=== PATIENT | male | born 2000 | race Caucasian/White ===

== ENCOUNTER 2024-04-03 10:32 | Outpatient (AMB) | payer BC, SELFPAY ==
--- NOTE | 2024-04-03 10:36 | A.OFFPC_ITS ---
Vital Signs 04/03/24 10:43 Height 6 ft 2 in Weight 156 lb 4 oz BMI 20.1 BP 130/68 Blood Pressure Location Lt brachial Position Sitting Pulse 78 Pulse Source Pulse Oximeter Pulse Oximetry (%) 99 Oxygen Delivery Method Room Air Intake Visit Reasons: New pt/requesting PE soon Intake Note: Patient is a new patient here to establish care for ADHD. Transferring care from [facility] in [place]. Medical records have not been requested and have not received. Supervisor [employer] Drilling Required: No Dietary Internship: Not Required per policy Accompanied by: Self / Same As Patient Allergies No Known Allergies Allergy (Verified 04/03/24 11:07) Medication List - Last Reconciled 04/03/24 by Stephie Sharpe PA-C No Known Home Meds Tobacco use date assessed: 04/03/24 Dental Screening Dental Screen Date: 04/03/24 Did you have a dental visit in the last 12 months?: Yes Did you have a dental problem in the last 6 months where you did not have access to dental care?: No Was dental information given to patient?: Patient has dentist [facility] Surgical History No pertinent past surgical history Social History Housing: House Alcohol intake: current Alcohol intake frequency: holidays/special occasions only Patient Tobacco Use Status: Never used Tobacco e-Cigarette/Vaping Use: Never Used Second Hand Smoke Exposure: No service: No Current occupational status: student Cognitive needs: No Hearing needs: No Vision needs: No Questionnaire PHQ-9 Over the last 2 weeks, how often have you been bothered by any of the following problems? 1. Little interest or pleasure in doing things: not at all 2. Feeling down, depressed, or hopeless: not at all 3. Trouble falling or staying asleep, or sleeping too much: not at all 4. Feeling tired or having little energy: not at all 5. Poor appetite or overeating: not at all 6. Feeling bad about yourself - or that you are a failure or have let yourself or your family down: not at all 7. Trouble concentrating on things, such as reading the newspaper or watching television: not at all 8. Moving or speaking so slowly that other people could have noticed. Or the opposite - being so fidgety or restless that you have been moving around a lot more than usual: not at all 9. Thoughts that you would be better off or of hurting yourself in some way: not at all Total score: 0 Depression Screening Interpretation: Negative Depression Screening Done: Yes Source: Developed by Drs. Carl Myers, Kyra Muñoz, Benny Pandey and colleagues, with an educational max from [employer]. Thrive Questionnaire Date Thrive assessed: 04/03/24 I am a: Patient What is your living situation today?: I have a steady place to live Within the past 12 months, did the food you bought not last and you didn't have the money to get more?: Never true Within the past 12 months, did you worry whether your food would run out before you got money to buy more?: Never true Do you have trouble paying for medicines?: No Do you have trouble getting transportation to medical appointments?: No Do you have trouble paying your heating and electricity bill?: No Do you have trouble taking care of your child, family member or friend?: No Do you have trouble with day-to-day activities such as bathing, preparing meals, shopping, managing finances, etc.?: No Are you currently unemployed and looking for a job?: No Are you interested in more education?: Yes Please select the resources that you would like help with: None Currently or been in a relationship where the following occur: I choose not to answer THRIVE Score: 0 AUDIT C Alcohol Use Questionnaire (AUDIT-C) 1. How often do you have a drink containing alcohol?: Monthly or less 2. How many drinks containing alcohol do you have on a typical day when you are drinking?: 1 or 2 3. How often do you have six or more drinks on one occasion?: Never Total Score: 1 GISELE-7 AMB Questionnaire GISELE-7 Date GISELE - 7 assessed: 04/03/24 Feeling nervous, anxious, or on edge: 0 = Not at all Not being able to stop or control worryin = Not at all Worrying too much about different things: 0 = Not at all Trouble relaxin = Not at all Being so restless that it is hard to sit still: 0 = Not at all Becoming easily annoyed or irritable: 0 = Not at all Feeling afraid as if something awful might happen: 0 = Not at all Total GISELE-7 score (0-4 normal; 5-9 mild; 10-14 moderate; 15-21 severe): 0 Source: Developed by Drs. Carl Myers, Kyra Muñoz, Benny Pandey and colleagues, with an educational max from [employer]. Physical exam (Primary Care) Vital Signs: Last Vital Signs Pulse 78 04/03/24 10:43 BP 130/68 04/03/24 10:43 Pulse Ox 99 04/03/24 10:43 Oxygen Delivery Method Room Air 04/03/24 10:43 BMI result Body Mass Index 20.1 Tobacco/Smoking Status: Tobacco use Status Tobacco use date assessed 04/03/24 04/03/24 10:53 Patient Tobacco Use Status Never used Tobacco 04/03/24 10:53 e-Cigarette/Vaping Use Never Used 04/03/24 10:53 PHQ-9: PHQ-9 Score PHQ-9: Total score 0 04/03/24 10:53 Depression Screening Interpretation: Negative Thrive Assessment: Date of Thrive Assessment Date Thrive assessed 04/03/24 04/03/24 10:53 Currently or been in a relationship where the following occur: I choose not to answer Coding Level of Care Code New Pt Prev Care 18-39yr([id number] Diagnoses Annual physical exam Z00.00 ADHD F90.9 Marijuana smoker F12.90 Assessment & Plan Assessment & Plan (1) Annual physical exam: Code(s): Z00.00 - Encounter for general adult medical examination without abnormal findings Category: Medical (2) ADHD: Code(s): F90.9 - Attention-deficit hyperactivity disorder, unspecified type Category: Medical (3) Marijuana smoker: Code(s): F12.90 - Cannabis use, unspecified, uncomplicated Category: Medical Plan Plan - Schedule laboratory tests including kidney function, liver function, and electrolytes to assess overall health status. - Recommend an eye examination within one to two years to monitor vision health, especially given family history of corrective lenses. - Continue current management for ADHD without medication, with monitoring for any changes in symptoms. - Return in 3-6 months Orders: Orders Hemoglobin A1c Today Z00.00 - Encounter for general adult medical examination without abnormal findings Liver Panel Today Z00.00 - Encounter for general adult medical examination without abnormal findings Vitamin D 25-OH Total Today Z00.00 - Encounter for general adult medical examination without abnormal findings Comprehensive [place]. Panel Fast Today Z00.00 - Encounter for general adult medical examination without abnormal findings Complete Blood Count Auto Diff Today Z00.00 - Encounter for general adult medical examination without abnormal findings Lipid Panel Today Z00.00 - Encounter for general adult medical examination without abnormal findings Magnesium Today Z00.00 - Encounter for general adult medical examination without abnormal findings Vitamin B12 and Folate Today Z00.00 - Encounter for general adult medical examination without abnormal findings TSH reflex Free T4 Today Z00.00 - Encounter for general adult medical examination without abnormal findings Patient Instructions: Patient Instructions - Obtain fasting laboratory tests for general health assessment as discussed. - Schedule a vision exam within the next one to two years. - Monitor skin for any changes or new lesions and report any concerns. - Continue current lifestyle and exercise routine. - Refrain from substance misuse and maintain healthy habits. - Follow up in six months to a year or earlier if labs return abnormal or new symptoms develop. Scribe Plan - Not visible on output: History of Present Illness The patient is a 23-year-old male presenting with an annual physical examination . He has a history of Attention-Deficit/Hyperactivity Disorder (ADHD), for which he was previously taking Concerta but discontinued use since August last year after his cris semester of college. The patient reports that he is managing his focus and attention well without the medication. No recent exacerbations or additional symptoms related to ADHD were reported. The patient also mentioned a family history of skin cancer, with both his late aunt and uncle having had the condition. He has observed no concerning skin lesions himself and stays vigilant about the possibility. Social History - The patient is a full-time college student studying electrical engineering. - He resides with his parents and a younger brother who is 20 years old. - He exercises regularly and attends a gym in [place], [place] at [employer]. - Reports occasional use of marijuana with friends and rare alcohol consumption. - Denies smoking tobacco or using nicotine products. Review of Systems - Psychiatric: Denies thoughts of self-harm or racing thoughts. Physical Exam Appearance: Alert. Oriented X3. No acute distress. Head: Normal external exam. Normocephalic. Atraumatic. Eyes: Pupils are equal, round, and reactive to light. Extraocular movements intact. Conjunctiva and sclera normal. Eyelids normal. Ears: External auditory canal normal. Tympanic membranes normal. Throat: Pharynx normal. Uvula midline. Moist mucous membranes. Neck: Normal inspection. Neck supple. Full range of motion. No adenopathy. Thyroid Normal. No meningeal signs. No neck mass noted. Cardiovascular: Normal heart rate and rhythm. Heart sound normal. No murmurs noted. Pulses normal throughout. Respiratory: No respiratory distress. Painless inspiration. Breath sounds normal. No wheezes/rales/rhonchi noted. Chest nontender. No accessory muscle usage noted or decreased air movement noted. Abdomen: Soft and nontender. Bowel sounds normal in all 4 quadrants. No distention noted. No organomegaly noted. No visible injury noted. Back: No costovertebral angle tenderness. Full range of motion noted. No lesions noted. Skin: Skin warm and dry. Normal skin color. Normal skin turgor. No rashes/lesions/lacerations noted. Extremities: No lower extremity edema. Extremities exhibit normal range of motion. Extremities nontender. Neuro: Oriented X 3. No motor deficit. No sensory deficit. Reflexes normal. Discussion Notes I discussed with the patient the importance of monitoring his symptoms of ADHD and referred him for laboratory tests to evaluate his general health. We talked about maintaining vigilance regarding skin health due to family history, ensuring no unusual lesions develop. I encouraged regular vision assessments due to family trends toward visual impairment. I advised the patient that follow-up would be necessary should labs show abnormal results or should new symptoms arise. We also reviewed substance use and social influences, emphasizing the moderation of marijuana and alcohol. No immediate interventions were required beyond routine health maintenance. Patient was informed and verbally consented to the use of an ambient scribe for clinic note documentation during this visit.
[2024-04-03 10:43] VITALS: BP 130/68; PULSE 78; O2SAT 99; BMI 20.1
== END 2024-04-03 11:21 | disposition home or self-care (01) ==
PROVIDERS: PCP Physician Assistant Medical; Visit Provider Physician Assistant Medical
DX: Z00.00 Encounter for general adult medical examination without abnormal findings (principal); F90.9 Attention-deficit hyperactivity disorder, unspecified type; F12.90 Cannabis use, unspecified, uncomplicated

== ENCOUNTER → 2024-04-03 10:32 | Outpatient (BNVA) | payer BC, SELFPAY | PROVIDERS: Visit Provider Physician Assistant Medical ==